=== PATIENT | female | born 1955 | race Caucasian/White ===

== ENCOUNTER → 2018-10-12 | Outpatient (CLI) | payer BC ==
--- NOTE | 2018-10-12 16:05 | KCIC ---
Abdominal ultrasound 10/12/2018 INDICATION: Left upper quadrant abdominal swelling. Mass. COMPARISON STUDY: None FINDINGS: Ultrasound evaluation of the abdomen was performed. Static images are submitted to PACS. Visualized portions of the aorta and IVC are grossly unremarkable. The liver is mildly enlarged measuring 19 cm longitudinally. The liver is diffusely hyperechoic suggesting hepatic steatosis. Visualized portions of liver do demonstrate no focal lesions. Portal venous flow appears to be in the normal direction. The common bile duct is nondilated measuring 4 mm in diameter. 2 possible tiny gallstones versus small echogenic claustral polyps are seen in the gallbladder. No wall thickening or pericholecystic fluid is seen. Right kidney contains a 3.5 cm partially exophytic lesion with increased through transmission, suggesting a cystic process. Internal septation appears to be present, the extent of which is unclear based on provided imaging. The right kidney is otherwise grossly unremarkable appearance measuring 9.5 cm in length. Left kidney is unremarkable in appearance measuring 12.5 cm in length. The spleen is poorly visualized but normal in size measuring approximately 9.7 cm longitudinally. Splenic calcifications are seen which most commonly reflect sequela of prior granulomatous disease. The pancreas is partially visualized. No gross pancreatic abnormality is seen. IMPRESSION: 1. Mild hepatomegaly. Probable hepatic steatosis 2. Possible small gallstones within the gallbladder lumen versus 2 small cholesterol polyps 3. 3.5 cm right probable cystic lesion within the right kidney. Complete characterization is limited based on this exam. Multiphase abdominal CT may be helpful for further evaluation. Electronically signed by: Marcus High MD (10/12/2018 4:01 PM) [id number]
== END | disposition home or self-care (01) ==
LOC: KCIC US 09:40
PROVIDERS: ATTEND Physician Assistant
DX: R16.0 Hepatomegaly, not elsewhere classified (principal); D73.89 Other diseases of spleen
CPT/HCPCS: 76700